=== PATIENT | female | born 1995 | race Two or more races ===

== ENCOUNTER 2018-03-25 15:43 | Inpatient (IN) | payer MEDICAID ==
[~2018-03-25] VITALS: Ht 162.6 cm; Wt 58.6 kg
[2018-03-25] MEDS ORDERED: PREN1TAB60 PO (15:57)
[2018-03-25 16:23] LABS: BASOPHILS # (AUTO) 0.02 x10^3/uL (0-0.1); BASOPHILS % (AUTO) 0 % (0-1); EOSINOPHILS # (AUTO) 0.11 x10^3/uL (0-0.4); EOSINOPHILS % (AUTO) 2 % (1-7); LYMPHOCYTES % (AUTO) 16 % (22-44); MD NO; MEAN CORPUSCULAR HEMOGLOBIN 32.7 pg (27.0-34.8); MEAN CORPUSCULAR VOLUME 93.3 fL (80-100); MEAN PLATELET VOLUME 9.2 fL (7.4-10.4); MONOCYTES % (AUTO) 5 % (2-9); NEUTROPHILS # (AUTO) 4.74 x10^3/uL (1.8-6.8); NEUTROPHILS % (AUTO) 77 % (42-75); PLATELET COUNT 224 x10^3/uL (130-400); RED CELL DISTRIBUTION WIDTH 13.4 % (9.6-15.2)
[2018-03-25 16:33] VITALS: BP 151/91
[2018-03-25 16:34] LABS: ALANINE AMINOTRANSFERASE 98 U/L (12-78); ALBUMIN 2.1 g/dL (3.4-5.0); ANION GAP 12 mmol/L (5-15); CALCIUM 8.8 mg/dL (8.5-10.1); CHLORIDE 107 mmol/L (98-107); CREATININE 0.66 mg/dL (0.55-1.02)
[2018-03-25 16:35] LABS: CREATININE,URINE RANDOM 90.2 mg/dL
[2018-03-25 16:37] LABS: ALKALINE PHOSPHATASE 462 U/L (45-117); BILIRUBIN,TOTAL 1.3 mg/dL (0.2-1.0); TOTAL PROTEIN 6.7 g/dL (6.4-8.2)
[2018-03-25 16:43] LABS: MICROSCOPIC INDICATED
[2018-03-25] MEDS ORDERED: BETAMETHASONE 6 MG/ML, 5ML IM ONE (17:20)
[2018-03-25] MEDS: BETAMETHASONE 6 MG/ML, 5ML IM SCH (17:23)
[2018-03-25 17:28] VITALS: BP 145/90
[2018-03-25] MEDS ORDERED: ACETAMINOPHEN 325 MG TABLET ONE (20:39)
[2018-03-25] MEDS: ACETAMINOPHEN 325 MG TABLET PO PRN (20:41)
[2018-03-26] MEDS ORDERED: OXYTOCIN 10 UNITS/ML, 1ML ONE (03:26)
[2018-03-26] MEDS ORDERED: LIDOCAINE/PF 1%, 30ML ONE (03:26)
[2018-03-26] MEDS ORDERED: OXYTOCIN 30U/ 0.9% NaCL 500ML 500 ML ONE (03:26)
[2018-03-26] MEDS ORDERED: MISOPROSTOL 200 MCG TABLET ONE (03:26)
[2018-03-26] MEDS ORDERED: NEWBORN KIT ONE (03:26)
[2018-03-26 05:00] LABS: BASOPHILS # (AUTO) 0.02 x10^3/uL (0-0.1); BASOPHILS % (AUTO) 0 % (0-1); EOSINOPHILS % (AUTO) 0 % (1-7); LYMPHOCYTES % (AUTO) 11 % (22-44); MD NO; MEAN CORPUSCULAR HGB CONC 35.1 g/dL (32.4-35.8); MEAN CORPUSCULAR VOLUME 94.2 fL (80-100); MEAN PLATELET VOLUME 9.3 fL (7.4-10.4); MONOCYTES # (AUTO) 0.17 x10^3/uL (0.2-0.8); MONOCYTES % (AUTO) 3 % (2-9); NEUTROPHILS # (AUTO) 6.11 x10^3/uL (1.8-6.8); NEUTROPHILS % (AUTO) 86 % (42-75); PLATELET COUNT 213 x10^3/uL (130-400); RED CELL DISTRIBUTION WIDTH 13.6 % (9.6-15.2)
[2018-03-26 05:12] LABS: ALBUMIN 2.1 g/dL (3.4-5.0); ANION GAP 11 mmol/L (5-15); CALCIUM 8.6 mg/dL (8.5-10.1); CHLORIDE 108 mmol/L (98-107)
[2018-03-26 05:16] LABS: ALANINE AMINOTRANSFERASE 94 U/L (12-78); ALKALINE PHOSPHATASE 443 U/L (45-117); BILIRUBIN,TOTAL 1.4 mg/dL (0.2-1.0); CREATININE 0.61 mg/dL (0.55-1.02); TOTAL PROTEIN 6.7 g/dL (6.4-8.2)
[2018-03-26] MEDS: BETAMETHASONE 6 MG/ML, 5ML IM SCH (17:09)
[2018-03-26 19:03] LABS: AMPHETAMINE SCREEN, URINE Negative (Negative); BARBITURATE SCREEN, URINE Negative (Negative); BENZODIAZEPINE SCREEN, URINE Negative (Negative); CANNABINOID SCREEN, URINE Negative (Negative); COCAINE SCREEN, URINE Negative (Negative); METHADONE SCREEN, URINE Negative (Negative); OPIATE SCREEN, URINE Negative (Negative)
[2018-03-26 20:00] VITALS: BP 146/89
[2018-03-26 23:00] VITALS: BP 126/62
[2018-03-27] MEDS ORDERED: PRENATAL VIT/IRON/FA 1 EACH TABLET ONE (08:16)
[2018-03-27] MEDS: PRENATAL VIT/IRON/FA 1 EACH TABLET PO SCH (08:19)
[2018-03-27 20:16] VITALS: BP 141/78
[2018-03-28 05:27] LABS: BASOPHILS # (AUTO) 0.01 x10^3/uL (0-0.1); BASOPHILS % (AUTO) 0 % (0-1); EOSINOPHILS # (AUTO) 0.03 x10^3/uL (0-0.4); EOSINOPHILS % (AUTO) 0 % (1-7); LYMPHOCYTES # (AUTO) 1.08 x10^3/uL (1-3.4); LYMPHOCYTES % (AUTO) 14 % (22-44); MD NO; MEAN CORPUSCULAR HEMOGLOBIN 33.1 pg (27.0-34.8); MEAN CORPUSCULAR HGB CONC 34.9 g/dL (32.4-35.8); MEAN CORPUSCULAR VOLUME 94.9 fL (80-100); MEAN PLATELET VOLUME 9.3 fL (7.4-10.4); MONOCYTES # (AUTO) 0.53 x10^3/uL (0.2-0.8); MONOCYTES % (AUTO) 7 % (2-9); NEUTROPHILS # (AUTO) 6.24 x10^3/uL (1.8-6.8); NEUTROPHILS % (AUTO) 79 % (42-75); PLATELET COUNT 199 x10^3/uL (130-400); RED CELL DISTRIBUTION WIDTH 13.4 % (9.6-15.2)
[2018-03-28 05:39] LABS: ALBUMIN 1.9 g/dL (3.4-5.0); ANION GAP 8 mmol/L (5-15); CALCIUM 8.2 mg/dL (8.5-10.1); CHLORIDE 109 mmol/L (98-107)
[2018-03-28 05:45] LABS: ALANINE AMINOTRANSFERASE 120 U/L (12-78); ALKALINE PHOSPHATASE 363 U/L (45-117); BILIRUBIN,TOTAL 0.7 mg/dL (0.2-1.0); CREATININE 0.52 mg/dL (0.55-1.02); TOTAL PROTEIN 6.2 g/dL (6.4-8.2)
[2018-03-28] MEDS ORDERED: PRENATAL VIT/IRON/FA 1 EACH TABLET ONE (08:11)
[2018-03-28] MEDS: PRENATAL VIT/IRON/FA 1 EACH TABLET PO SCH (08:12)
[2018-03-28 20:00] VITALS: BP 126/60
[2018-03-29 05:54] LABS: BASOPHILS # (AUTO) 0.03 x10^3/uL (0-0.1); BASOPHILS % (AUTO) 0 % (0-1); EOSINOPHILS # (AUTO) 0.18 x10^3/uL (0-0.4); EOSINOPHILS % (AUTO) 2 % (1-7); LYMPHOCYTES # (AUTO) 0.87 x10^3/uL (1-3.4); LYMPHOCYTES % (AUTO) 11 % (22-44); MD NO; MEAN CORPUSCULAR HEMOGLOBIN 32.9 pg (27.0-34.8); MEAN CORPUSCULAR HGB CONC 34.4 g/dL (32.4-35.8); MEAN CORPUSCULAR VOLUME 95.5 fL (80-100); MEAN PLATELET VOLUME 9.6 fL (7.4-10.4); MONOCYTES # (AUTO) 0.54 x10^3/uL (0.2-0.8); MONOCYTES % (AUTO) 7 % (2-9); NEUTROPHILS # (AUTO) 6.59 x10^3/uL (1.8-6.8); NEUTROPHILS % (AUTO) 80 % (42-75); PLATELET COUNT 207 x10^3/uL (130-400); RED CELL DISTRIBUTION WIDTH 13.4 % (9.6-15.2)
[2018-03-29 05:57] LABS: INTERNATIONAL NORMALIZED RATIO 0.89 (0.93-1.1); PROTHROMBIN TIME 9.3 Seconds (9.6-11.5)
[2018-03-29 06:08] LABS: CALCIUM 8.4 mg/dL (8.5-10.1); CHLORIDE 107 mmol/L (98-107)
[2018-03-29 06:21] LABS: ALANINE AMINOTRANSFERASE 104 U/L (12-78); ALKALINE PHOSPHATASE 358 U/L (45-117); ANION GAP 11 mmol/L (5-15); BILIRUBIN,TOTAL 0.7 mg/dL (0.2-1.0); CREATININE 0.56 mg/dL (0.55-1.02); TOTAL PROTEIN 6.2 g/dL (6.4-8.2)
[2018-03-29 08:05] VITALS: BP 125/73
[2018-03-29] MEDS ORDERED: DIPH,PERTUSS(ACELL),TET VAC/PF NC IM-VACC ONE ×3 (16:00→16:08)
[2018-03-29] MEDS ORDERED: PRENATAL VIT/IRON/FA 1 EACH TABLET ONE (16:37)
[2018-03-29] MEDS: PRENATAL VIT/IRON/FA 1 EACH TABLET PO SCH (16:47)
[2018-03-29 19:10] VITALS: BP 126/78
[2018-03-30 04:43] LABS: BASOPHILS # (AUTO) 0.03 x10^3/uL (0-0.1); BASOPHILS % (AUTO) 0 % (0-1); EOSINOPHILS % (AUTO) 2 % (1-7); LYMPHOCYTES # (AUTO) 1.12 x10^3/uL (1-3.4); LYMPHOCYTES % (AUTO) 13 % (22-44); MD NO; MEAN CORPUSCULAR HEMOGLOBIN 32.4 pg (27.0-34.8); MEAN CORPUSCULAR HGB CONC 34.1 g/dL (32.4-35.8); MEAN CORPUSCULAR VOLUME 94.9 fL (80-100); MEAN PLATELET VOLUME 9.2 fL (7.4-10.4); MONOCYTES # (AUTO) 0.51 x10^3/uL (0.2-0.8); MONOCYTES % (AUTO) 6 % (2-9); NEUTROPHILS # (AUTO) 6.66 x10^3/uL (1.8-6.8); NEUTROPHILS % (AUTO) 78 % (42-75); PLATELET COUNT 211 x10^3/uL (130-400); RED CELL DISTRIBUTION WIDTH 13.5 % (9.6-15.2)
[2018-03-30 04:53] LABS: ALANINE AMINOTRANSFERASE 91 U/L (12-78); ANION GAP 9 mmol/L (5-15); CHLORIDE 106 mmol/L (98-107); CREATININE 0.44 mg/dL (0.55-1.02)
[2018-03-30 04:55] LABS: ALKALINE PHOSPHATASE 380 U/L (45-117); BILIRUBIN,TOTAL 0.7 mg/dL (0.2-1.0); TOTAL PROTEIN 6.3 g/dL (6.4-8.2)
[2018-03-30 10:30] VITALS: BP 127/66
[2018-03-30] MEDS ORDERED: PRENATAL VIT/IRON/FA 1 EACH TABLET ONE (11:08)
[2018-03-30] MEDS: PRENATAL VIT/IRON/FA 1 EACH TABLET PO SCH (13:57)
[2018-03-31 05:46] LABS: BASOPHILS # (AUTO) 0.04 x10^3/uL (0-0.1); BASOPHILS % (AUTO) 0 % (0-1); EOSINOPHILS # (AUTO) 0.19 x10^3/uL (0-0.4); EOSINOPHILS % (AUTO) 2 % (1-7); LYMPHOCYTES # (AUTO) 1.26 x10^3/uL (1-3.4); LYMPHOCYTES % (AUTO) 15 % (22-44); MD NO; MEAN CORPUSCULAR HEMOGLOBIN 32.8 pg (27.0-34.8); MEAN CORPUSCULAR HGB CONC 34.7 g/dL (32.4-35.8); MEAN CORPUSCULAR VOLUME 94.6 fL (80-100); MEAN PLATELET VOLUME 9.3 fL (7.4-10.4); MONOCYTES # (AUTO) 0.44 x10^3/uL (0.2-0.8); MONOCYTES % (AUTO) 5 % (2-9); NEUTROPHILS # (AUTO) 6.24 x10^3/uL (1.8-6.8); NEUTROPHILS % (AUTO) 76 % (42-75); PLATELET COUNT 218 x10^3/uL (130-400); RED BLOOD COUNT 4.11 x10^6/uL (3.82-5.3); RED CELL DISTRIBUTION WIDTH 13.6 % (9.6-15.2)
[2018-03-31 06:00] LABS: CHLORIDE 106 mmol/L (98-107)
[2018-03-31 06:01] LABS: ANION GAP 10 mmol/L (5-15); CALCIUM 8.9 mg/dL (8.5-10.1)
[2018-03-31 06:06] LABS: ALANINE AMINOTRANSFERASE 80 U/L (12-78); ALKALINE PHOSPHATASE 383 U/L (45-117); BILIRUBIN,TOTAL 0.7 mg/dL (0.2-1.0); CREATININE 0.46 mg/dL (0.55-1.02); TOTAL PROTEIN 6.3 g/dL (6.4-8.2)
[2018-03-31 07:30] VITALS: BP 126/66
[2018-04-01 05:50] LABS: BASOPHILS # (AUTO) 0.03 x10^3/uL (0-0.1); BASOPHILS % (AUTO) 0 % (0-1); EOSINOPHILS # (AUTO) 0.23 x10^3/uL (0-0.4); EOSINOPHILS % (AUTO) 3 % (1-7); LYMPHOCYTES # (AUTO) 1.19 x10^3/uL (1-3.4); LYMPHOCYTES % (AUTO) 15 % (22-44); MD NO; MEAN CORPUSCULAR HEMOGLOBIN 32.5 pg (27.0-34.8); MEAN CORPUSCULAR HGB CONC 34.5 g/dL (32.4-35.8); MEAN CORPUSCULAR VOLUME 94.2 fL (80-100); MONOCYTES # (AUTO) 0.48 x10^3/uL (0.2-0.8); MONOCYTES % (AUTO) 6 % (2-9); NEUTROPHILS # (AUTO) 5.84 x10^3/uL (1.8-6.8); NEUTROPHILS % (AUTO) 75 % (42-75); PLATELET COUNT 221 x10^3/uL (130-400); RED CELL DISTRIBUTION WIDTH 13.5 % (9.6-15.2)
[2018-04-01 05:57] LABS: ALANINE AMINOTRANSFERASE 67 U/L (12-78); ALBUMIN 1.9 g/dL (3.4-5.0); ANION GAP 10 mmol/L (5-15); CALCIUM 8.2 mg/dL (8.5-10.1); CHLORIDE 107 mmol/L (98-107)
[2018-04-01 05:59] LABS: ALKALINE PHOSPHATASE 396 U/L (45-117); BILIRUBIN,TOTAL 0.8 mg/dL (0.2-1.0); TOTAL PROTEIN 6.1 g/dL (6.4-8.2)
[2018-04-01] MEDS ORDERED: PRENATAL VIT/IRON/FA 1 EACH TABLET ONE (08:00)
[2018-04-01] MEDS: PRENATAL VIT/IRON/FA 1 EACH TABLET PO SCH (08:03)
[2018-04-01 08:11] VITALS: BP 136/72
[2018-04-02 05:01] LABS: BASOPHILS # (AUTO) 0.02 x10^3/uL (0-0.1); BASOPHILS % (AUTO) 0 % (0-1); EOSINOPHILS # (AUTO) 0.16 x10^3/uL (0-0.4); EOSINOPHILS % (AUTO) 2 % (1-7); LYMPHOCYTES # (AUTO) 1.08 x10^3/uL (1-3.4); LYMPHOCYTES % (AUTO) 16 % (22-44); MD NO; MEAN CORPUSCULAR HEMOGLOBIN 32.9 pg (27.0-34.8); MEAN CORPUSCULAR HGB CONC 35.1 g/dL (32.4-35.8); MEAN CORPUSCULAR VOLUME 93.7 fL (80-100); MONOCYTES % (AUTO) 7 % (2-9); NEUTROPHILS # (AUTO) 5.15 x10^3/uL (1.8-6.8); NEUTROPHILS % (AUTO) 75 % (42-75); PLATELET COUNT 215 x10^3/uL (130-400); RED BLOOD COUNT 4.19 x10^6/uL (3.82-5.3); RED CELL DISTRIBUTION WIDTH 13.4 % (9.6-15.2)
[2018-04-02 05:05] LABS: ALANINE AMINOTRANSFERASE 61 U/L (12-78); ANION GAP 10 mmol/L (5-15); CALCIUM 8.3 mg/dL (8.5-10.1); CHLORIDE 107 mmol/L (98-107); CREATININE 0.61 mg/dL (0.55-1.02)
[2018-04-02 05:07] LABS: ALKALINE PHOSPHATASE 422 U/L (45-117); BILIRUBIN,TOTAL 0.8 mg/dL (0.2-1.0); TOTAL PROTEIN 6.3 g/dL (6.4-8.2)
[2018-04-02] MEDS ORDERED: PRENATAL VIT/IRON/FA 1 EACH TABLET ONE (08:57)
[2018-04-02] MEDS: PRENATAL VIT/IRON/FA 1 EACH TABLET PO SCH (09:10)
[2018-04-02 09:15] VITALS: BP 120/76
[2018-04-02] MEDS ORDERED: CALCIUM CARBONATE 500 MG TAB.CHEW PO PRN (23:30)
[2018-04-02] MEDS ORDERED: CALCIUM CARBONATE 500 MG TAB.CHEW ONE (23:31)
[2018-04-03] MEDS ORDERED: PRENATAL VIT/IRON/FA 1 EACH TABLET ONE (11:52)
[2018-04-03] MEDS: PRENATAL VIT/IRON/FA 1 EACH TABLET PO SCH (11:53)
[2018-04-04 06:50] LABS: BASOPHILS # (AUTO) 0.03 x10^3/uL (0-0.1); BASOPHILS % (AUTO) 1 % (0-1); EOSINOPHILS # (AUTO) 0.28 x10^3/uL (0-0.4); EOSINOPHILS % (AUTO) 5 % (1-7); LYMPHOCYTES # (AUTO) 1.05 x10^3/uL (1-3.4); LYMPHOCYTES % (AUTO) 18 % (22-44); MD NO; MEAN CORPUSCULAR HEMOGLOBIN 32.6 pg (27.0-34.8); MEAN CORPUSCULAR HGB CONC 34.6 g/dL (32.4-35.8); MEAN CORPUSCULAR VOLUME 94.2 fL (80-100); MONOCYTES # (AUTO) 0.39 x10^3/uL (0.2-0.8); MONOCYTES % (AUTO) 7 % (2-9); NEUTROPHILS % (AUTO) 71 % (42-75); PLATELET COUNT 203 x10^3/uL (130-400)
[2018-04-04 06:54] LABS: ALANINE AMINOTRANSFERASE 45 U/L (12-78); ANION GAP 9 mmol/L (5-15); CALCIUM 8.5 mg/dL (8.5-10.1); CHLORIDE 108 mmol/L (98-107); CREATININE 0.55 mg/dL (0.55-1.02)
[2018-04-04 06:56] LABS: ALKALINE PHOSPHATASE 421 U/L (45-117); BILIRUBIN,TOTAL 0.8 mg/dL (0.2-1.0); TOTAL PROTEIN 6.3 g/dL (6.4-8.2)
[2018-04-04 08:40] VITALS: BP 139/68
[2018-04-05] MEDS: PRENATAL VIT/IRON/FA 1 EACH TABLET PO SCH ×2 (09:00→20:22)
[2018-04-05] MEDS ORDERED: PRENATAL VIT/IRON/FA 1 EACH TABLET ONE (20:19)
[2018-04-06] MEDS ORDERED: ACETAMINOPHEN 325 MG TABLET ONE (03:34)
[2018-04-06] MEDS: ACETAMINOPHEN 325 MG TABLET PO PRN (03:35)
[2018-04-06 10:50] VITALS: BP 130/60
[2018-04-06] MEDS ORDERED: PRENATAL VIT/IRON/FA 1 EACH TABLET ONE ×2 (11:02→20:22)
[2018-04-06] MEDS: PRENATAL VIT/IRON/FA 1 EACH TABLET PO SCH ×2 (11:07→20:24)
[2018-04-06 19:23] VITALS: BP 142/73
[2018-04-07] MEDS ORDERED: PRENATAL VIT/IRON/FA 1 EACH TABLET ONE (20:01)
[2018-04-07] MEDS: PRENATAL VIT/IRON/FA 1 EACH TABLET PO SCH (20:05)
[2018-04-08 05:48] LABS: CHLORIDE 107 mmol/L (98-107)
[2018-04-08 05:56] LABS: BASOPHILS # (AUTO) 0.03 x10^3/uL (0-0.1); BASOPHILS % (AUTO) 0 % (0-1); EOSINOPHILS # (AUTO) 0.16 x10^3/uL (0-0.4); EOSINOPHILS % (AUTO) 2 % (1-7); LYMPHOCYTES # (AUTO) 1.23 x10^3/uL (1-3.4); LYMPHOCYTES % (AUTO) 13 % (22-44); MD NO; MEAN CORPUSCULAR HEMOGLOBIN 32.8 pg (27.0-34.8); MEAN CORPUSCULAR VOLUME 93.9 fL (80-100); MEAN PLATELET VOLUME 9.2 fL (7.4-10.4); MONOCYTES # (AUTO) 0.65 x10^3/uL (0.2-0.8); MONOCYTES % (AUTO) 7 % (2-9); NEUTROPHILS # (AUTO) 7.26 x10^3/uL (1.8-6.8); NEUTROPHILS % (AUTO) 78 % (42-75); PLATELET COUNT 203 x10^3/uL (130-400); RED BLOOD COUNT 4.01 x10^6/uL (3.82-5.3)
[2018-04-08 05:59] LABS: ALANINE AMINOTRANSFERASE 30 U/L (12-78); ALBUMIN 1.9 g/dL (3.4-5.0); ALKALINE PHOSPHATASE 462 U/L (45-117); ANION GAP 9 mmol/L (5-15); BILIRUBIN,TOTAL 0.9 mg/dL (0.2-1.0); CALCIUM 8.5 mg/dL (8.5-10.1); CREATININE 0.59 mg/dL (0.55-1.02); TOTAL PROTEIN 6.2 g/dL (6.4-8.2)
[2018-04-08 08:05] VITALS: BP 123/63
== END 2018-04-08 12:56 | disposition home or self-care (01) | DRG 833 ==
LOC: LDOP 15:43 → UNDOADMOB 17:20 → OBSVTOIN 17:20 → LDIP 17:20 → INTOOBSV 17:20 → LDIP 03-26 21:35 → OBSVTOIN 03-26 21:35
PROVIDERS: ADMIT Obstetrics & Gynecology; ATTEND Obstetrics & Gynecology
DX: O13.3 Gestational [pregnancy-induced] hypertension without significant proteinuria, third trimester (principal); O30.043 Twin pregnancy, dichorionic/diamniotic, third trimester; Z3A.33 33 weeks gestation of pregnancy; G40.909 Epilepsy, unspecified, not intractable, without status epilepticus; O99.353 Diseases of the nervous system complicating pregnancy, third trimester; O36.5932 Maternal care for other known or suspected poor fetal growth, third trimester, fetus 2; R74.8 Abnormal levels of other serum enzymes; O26.893 Other specified pregnancy related conditions, third trimester; Z23 Encounter for immunization
CPT/HCPCS: 36415; 80053; 80307; 81001; 81050; 82570; 82950; 83615; 84156; 84550; 85025; 85610; 85730; 86592; 86762; 86850; 86900; 87340; 87806; 90656; 90715; G0378; J0702; G0475

== ENCOUNTER 2018-04-20 23:57 | Outpatient (CLI) | payer MEDICAID ==
[~2018-04-20] VITALS: Ht 162.6 cm; Wt 60.0 kg
[~2018-04-20 23:57] MED LIST: PREN1TAB60 PO
[2018-04-21 00:52] LABS: BASOPHILS # (AUTO) 0.02 x10^3/uL (0-0.1); BASOPHILS % (AUTO) 0 % (0-1); EOSINOPHILS # (AUTO) 0.05 x10^3/uL (0-0.4); EOSINOPHILS % (AUTO) 1 % (1-7); LYMPHOCYTES # (AUTO) 1.23 x10^3/uL (1-3.4); LYMPHOCYTES % (AUTO) 20 % (22-44); MD NO; MEAN CORPUSCULAR HGB CONC 34.5 g/dL (32.4-35.8); MEAN CORPUSCULAR VOLUME 92.7 fL (80-100); MEAN PLATELET VOLUME 9.3 fL (7.4-10.4); MONOCYTES # (AUTO) 0.33 x10^3/uL (0.2-0.8); MONOCYTES % (AUTO) 5 % (2-9); NEUTROPHILS # (AUTO) 4.52 x10^3/uL (1.8-6.8); NEUTROPHILS % (AUTO) 74 % (42-75); PLATELET COUNT 352 x10^3/uL (130-400); RED BLOOD COUNT 4.24 x10^6/uL (3.82-5.3); RED CELL DISTRIBUTION WIDTH 12.9 % (9.6-15.2)
[2018-04-21 00:59] LABS: ALANINE AMINOTRANSFERASE 41 U/L (12-78); ALBUMIN 1.5 g/dL (3.4-5.0); ANION GAP 10 mmol/L (5-15); CALCIUM 7.9 mg/dL (8.5-10.1); CHLORIDE 108 mmol/L (98-107); CREATININE 0.84 mg/dL (0.55-1.02)
[2018-04-21 01:01] LABS: ALKALINE PHOSPHATASE 536 U/L (45-117); TOTAL PROTEIN 6.7 g/dL (6.4-8.2)
[2018-04-21 01:09] LABS: MICROSCOPIC INDICATED
[2018-04-21 01:24] LABS: CREATININE,URINE RANDOM 94.2 mg/dL
[2018-04-21] MEDS ORDERED: NITROFURANTOIN (MACROBID) 100 MG CAPSULE ONE (01:34)
[2018-04-21] MEDS ORDERED: NITROFURANTOIN (MACROBID) 100 MG CAPSULE PO ONE (02:00)
== END 2018-04-21 01:42 | disposition home or self-care (01) ==
LOC: LDOP 23:57
PROVIDERS: ATTEND Obstetrics & Gynecology
DX: O26.893 Other specified pregnancy related conditions, third trimester (principal); Z3A.35 35 weeks gestation of pregnancy; R10.9 Unspecified abdominal pain
CPT/HCPCS: 36415; 59025; 80053; 81001; 82570; 84156; 84550; 85025; 87086; 99211; G0463

== ENCOUNTER 2018-04-30 11:35 | Inpatient (IN) | payer MEDICAID ==
[2018-04-30 12:42] LABS: BASOPHILS # (AUTO) 0.02 x10^3/uL (0-0.1); BASOPHILS % (AUTO) 0 % (0-1); EOSINOPHILS # (AUTO) 0.09 x10^3/uL (0-0.4); EOSINOPHILS % (AUTO) 1 % (1-7); LYMPHOCYTES # (AUTO) 1.29 x10^3/uL (1-3.4); LYMPHOCYTES % (AUTO) 20 % (22-44); MD NO; MEAN CORPUSCULAR HEMOGLOBIN 32.3 pg (27.0-34.8); MEAN CORPUSCULAR HGB CONC 34.4 g/dL (32.4-35.8); MEAN CORPUSCULAR VOLUME 93.9 fL (80-100); MEAN PLATELET VOLUME 10.6 fL (7.4-10.4); MONOCYTES # (AUTO) 0.27 x10^3/uL (0.2-0.8); MONOCYTES % (AUTO) 4 % (2-9); NEUTROPHILS # (AUTO) 4.75 x10^3/uL (1.8-6.8); NEUTROPHILS % (AUTO) 74 % (42-75); PLATELET COUNT 209 x10^3/uL (130-400); RED BLOOD COUNT 4.59 x10^6/uL (3.82-5.3); RED CELL DISTRIBUTION WIDTH 13.9 % (9.6-15.2)
[2018-04-30 12:52] LABS: CHLORIDE 107 mmol/L (98-107)
[2018-04-30 13:00] LABS: ALANINE AMINOTRANSFERASE 44 U/L (12-78); ALBUMIN 1.8 g/dL (3.4-5.0); ALKALINE PHOSPHATASE 681 U/L (45-117); ANION GAP 8 mmol/L (5-15); BILIRUBIN, DIRECT 1.3 mg/dL (0.1-0.2); BILIRUBIN,TOTAL 1.6 mg/dL (0.2-1.0); CALCIUM 8.6 mg/dL (8.5-10.1); CREATININE 0.87 mg/dL (0.55-1.02); TOTAL PROTEIN 6.9 g/dL (6.4-8.2)
[2018-04-30 13:33] LABS: CREATININE,URINE RANDOM 59.3 mg/dL
[2018-04-30 13:56] LABS: MICROSCOPIC INDICATED
[2018-04-30 15:52] LABS: AMPHETAMINE SCREEN, URINE Negative (Negative); BARBITURATE SCREEN, URINE Negative (Negative); BENZODIAZEPINE SCREEN, URINE Negative (Negative); CANNABINOID SCREEN, URINE Negative (Negative); COCAINE SCREEN, URINE Negative (Negative); METHADONE SCREEN, URINE Negative (Negative); OPIATE SCREEN, URINE Negative (Negative)
== END 2018-04-30 14:45 | disposition home or self-care (01) | DRG 833 ==
LOC: LDOP 11:35 → LDIP 12:14
PROVIDERS: ADMIT Obstetrics & Gynecology; ATTEND Obstetrics & Gynecology
DX: O41.03X0 Oligohydramnios, third trimester, not applicable or unspecified (principal); O32.1XX0 Maternal care for breech presentation, not applicable or unspecified; O36.5930 Maternal care for other known or suspected poor fetal growth, third trimester, not applicable or unspecified; O30.043 Twin pregnancy, dichorionic/diamniotic, third trimester; Z3A.37 37 weeks gestation of pregnancy
CPT/HCPCS: 36415; 80053; 80307; 81001; 82248; 82570; 84156; 84550; 85025; 86850; 86900; 87081; 87086; G0378

== ENCOUNTER 2018-05-03 11:54 | Inpatient (IN) | payer MEDICAID ==
[~2018-05-03] VITALS: Ht 162.6 cm; Wt 58.0 kg
[2018-05-03] MEDS ORDERED: OXYTOCIN 30U/ 0.9% NaCL 500ML 500 ML IV SCH (12:58)
[2018-05-03] MEDS ORDERED: LACTATED RINGERS 1,000 ML IV SCH ×2 (12:58→13:00)
[2018-05-03] MEDS ORDERED: SODIUM CITRATE/CITRIC ACID 30 ML UDC PO ONE (13:00)
[2018-05-03] MEDS ORDERED: LACTATED RINGERS 1,000 ML IVBOLUS ONE (13:00)
[2018-05-03] MEDS ORDERED: METOCLOPRAMIDE 5 MG/ML, 2ML IV ONE (13:00)
[2018-05-03 13:23] LABS: BASOPHILS # (AUTO) 0.03 x10^3/uL (0-0.1); BASOPHILS % (AUTO) 1 % (0-1); EOSINOPHILS # (AUTO) 0.04 x10^3/uL (0-0.4); EOSINOPHILS % (AUTO) 1 % (1-7); LYMPHOCYTES # (AUTO) 1.16 x10^3/uL (1-3.4); LYMPHOCYTES % (AUTO) 19 % (22-44); MD NO; MEAN CORPUSCULAR HEMOGLOBIN 32.1 pg (27.0-34.8); MEAN CORPUSCULAR HGB CONC 34.5 g/dL (32.4-35.8); MEAN CORPUSCULAR VOLUME 92.9 fL (80-100); MONOCYTES # (AUTO) 0.21 x10^3/uL (0.2-0.8); MONOCYTES % (AUTO) 3 % (2-9); NEUTROPHILS # (AUTO) 4.78 x10^3/uL (1.8-6.8); NEUTROPHILS % (AUTO) 77 % (42-75); PLATELET COUNT 207 x10^3/uL (130-400); RED BLOOD COUNT 4.73 x10^6/uL (3.82-5.3); RED CELL DISTRIBUTION WIDTH 14.3 % (9.6-15.2)
[2018-05-03] MEDS ORDERED: PLEASE ENTER HEIGHT AND WEIGHT MC SCH (13:30)
[2018-05-03 13:39] VITALS: BP 135/96
[2018-05-03] MEDS ORDERED: METOCLOPRAMIDE 5 MG/ML, 2ML ONE (14:25)
[2018-05-03] MEDS ORDERED: SODIUM CITRATE/CITRIC ACID 30 ML UDC ONE (14:25)
[2018-05-03] MEDS ORDERED: NEWBORN KIT ONE ×2 (14:26→14:29)
[2018-05-03] MEDS ORDERED: MEPERIDINE/PF 25MG/0.5ML IVPush PRN (15:30)
[2018-05-03] MEDS ORDERED: HYDROmorphone 2 MG/ML, 1ML IVPush PRN (15:30)
[2018-05-03] MEDS ORDERED: LABETALOL 5MG/ML, 20ML IV PRN (15:30)
[2018-05-03] MEDS ORDERED: hydrALAzine 20 MG/ML, 1ML IV PRN (15:30)
[2018-05-03] MEDS ORDERED: PROMETHAZINE 25 MG/ML, 1ML IV PRN (15:30)
[2018-05-03] MEDS ORDERED: EPHEDRINE 50 MG/ML, 1ML IVPush PRN (15:30)
[2018-05-03] MEDS ORDERED: ONDANSETRON 2MG/ML, 2ML IVPush PRN (15:30)
[2018-05-03] MEDS ORDERED: MIDAZOLAM 1 MG/ML, 2ML IV PRN (15:30)
[2018-05-03] MEDS ORDERED: OXYcodone 5 MG/5 ML ORAL.SOL UDC PO PRN ×2 (15:30→20:30)
[2018-05-03] MEDS ORDERED: FENTANYL PF 100 MCG/2ML IV PRN (15:30)
[2018-05-03] MEDS ORDERED: HYDROcodone/APAP 7.5-325MG/15ML UDC PO PRN (15:30)
[2018-05-03] MEDS ORDERED: ALBUTEROL SULFATE 2.5 MG/3 ML NPPB PRN (15:30)
[2018-05-03] MEDS ORDERED: KETOROLAC 30 MG/1 ML ONE (15:47)
[2018-05-03] MEDS ORDERED: PHENYLEPHRINE 10 MG/ML ONE (15:47)
[2018-05-03] MEDS ORDERED: CEFAZOLIN 1,000 MG ONE (15:47)
[2018-05-03] MEDS ORDERED: FENTANYL PF 100 MCG/2ML ONE (15:47)
[2018-05-03] MEDS ORDERED: ONDANSETRON 2MG/ML, 2ML ONE (15:47)
[2018-05-03] MEDS ORDERED: OXYTOCIN 10 UNITS/ML, 1ML ONE (15:47)
[2018-05-03] MEDS ORDERED: DEXAMETHASONE 4 MG/ML, 1ML ONE (15:47)
[2018-05-03] MEDS ORDERED: EPHEDRINE 50 MG/ML, 1ML ONE (15:47)
[2018-05-03] MEDS ORDERED: OXYTOCIN 30U/ 0.9% NaCL 500ML 500 ML ONE (16:20)
[2018-05-03] MEDS ORDERED: HYDROmorphone 2 MG/ML, 1ML ONE (17:05)
[2018-05-03] MEDS ORDERED: MISOPROSTOL 200 MCG TABLET ONE (17:33)
[2018-05-03] MEDS ORDERED: MISOPROSTOL 200 MCG TABLET PR ONE (18:30)
[2018-05-03] MEDS ORDERED: OXYcodone 5 MG/5 ML ORAL.SOL UDC ONE (20:15)
[2018-05-03 20:30] VITALS: BP 130/69
[2018-05-03] MEDS: OXYTOCIN 30U/ 0.9% NaCL 500ML 500 ML IV SCH (20:39)
[2018-05-03] MEDS: LACTATED RINGERS 1,000 ML IV SCH ×2 (20:39)
[2018-05-03] MEDS ORDERED: CALCIUM CARBONATE 500 MG TAB.CHEW PO PRN (21:00)
[2018-05-03] MEDS ORDERED: ACETAMINOPHEN 325 MG TABLET PO PRN ×2 (21:00)
[2018-05-03] MEDS ORDERED: ONDANSETRON 2MG/ML, 2ML IV PRN (21:00)
[2018-05-03] MEDS: KETOROLAC 30 MG/1 ML IV SCH (23:38)
[2018-05-04] VITALS (7 sets, daily range): BP systolic 119–151; BP diastolic 72–92
[2018-05-04] MEDS: OXYcodone/APAP 5/325MG TABLET PO PRN ×4 (02:13→22:55)
[2018-05-04] MEDS: LACTATED RINGERS 1,000 ML IV SCH ×5 (04:39→20:39)
[2018-05-04] MEDS: KETOROLAC 30 MG/1 ML IV SCH ×4 (05:35→22:58)
[2018-05-04] MEDS: OXYTOCIN 30U/ 0.9% NaCL 500ML 500 ML IV SCH ×2 (06:39→16:39)
[2018-05-04] MEDS: DOCUSATE 100 MG CAPSULE PO PRN ×2 (10:01→22:55)
[2018-05-04] MEDS: PRENATAL VIT/IRON/FA 1 EACH TABLET PO SCH (10:01)
[2018-05-05] MEDS: OXYTOCIN 30U/ 0.9% NaCL 500ML 500 ML IV SCH ×3 (02:39→18:38)
[2018-05-05] MEDS: LACTATED RINGERS 1,000 ML IV SCH ×6 (02:39→18:38)
[2018-05-05] MEDS: OXYcodone/APAP 5/325MG TABLET PO PRN ×2 (05:03→22:41)
[2018-05-05] MEDS: KETOROLAC 30 MG/1 ML IV SCH ×3 (05:49→17:58)
[2018-05-05 07:25] VITALS: BP 128/79
[2018-05-05 09:45] LABS: BASOPHILS # (AUTO) 0.03 x10^3/uL (0-0.1); BASOPHILS % (AUTO) 0 % (0-1); EOSINOPHILS # (AUTO) 0.04 x10^3/uL (0-0.4); EOSINOPHILS % (AUTO) 1 % (1-7); LYMPHOCYTES # (AUTO) 1.72 x10^3/uL (1-3.4); LYMPHOCYTES % (AUTO) 18 % (22-44); MD NO; MEAN CORPUSCULAR HEMOGLOBIN 31.5 pg (27.0-34.8); MEAN CORPUSCULAR HGB CONC 33.4 g/dL (32.4-35.8); MEAN CORPUSCULAR VOLUME 94.4 fL (80-100); MEAN PLATELET VOLUME 9.9 fL (7.4-10.4); MONOCYTES # (AUTO) 0.58 x10^3/uL (0.2-0.8); MONOCYTES % (AUTO) 6 % (2-9); NEUTROPHILS # (AUTO) 7.41 x10^3/uL (1.8-6.8); NEUTROPHILS % (AUTO) 76 % (42-75); PLATELET COUNT 194 x10^3/uL (130-400); RED BLOOD COUNT 2.65 x10^6/uL (3.82-5.3)
[2018-05-05] MEDS: DOCUSATE 100 MG CAPSULE PO PRN (11:29)
[2018-05-05] MEDS: PRENATAL VIT/IRON/FA 1 EACH TABLET PO SCH (11:29)
[2018-05-05 21:00] VITALS: BP 131/78
[2018-05-06] MEDS: OXYcodone/APAP 5/325MG TABLET PO PRN ×4 (03:42→20:32)
[2018-05-06] MEDS: LACTATED RINGERS 1,000 ML IV SCH (04:39)
[2018-05-06] MEDS: IBUPROFEN 600 MG TABLET PO PRN ×2 (06:47→15:54)
[2018-05-06 08:55] VITALS: BP 126/81
[2018-05-06] MEDS: DOCUSATE 100 MG CAPSULE PO PRN ×2 (09:06→20:32)
[2018-05-06] MEDS: PRENATAL VIT/IRON/FA 1 EACH TABLET PO SCH (09:06)
[2018-05-06 19:15] VITALS: BP 132/86
[2018-05-07] MEDS: OXYcodone/APAP 5/325MG TABLET PO PRN ×2 (00:16→15:47)
[2018-05-07] MEDS: IBUPROFEN 600 MG TABLET PO PRN ×3 (00:16→15:47)
[2018-05-07 08:30] VITALS: BP 130/82
[2018-05-07] MEDS: DOCUSATE 100 MG CAPSULE PO PRN (08:36)
[2018-05-07] MEDS: PRENATAL VIT/IRON/FA 1 EACH TABLET PO SCH (08:36)
[2018-05-07] MEDS ORDERED: BISACODYL 10 MG SUPP PR PRN (11:00)
[2018-05-07] MEDS ORDERED: IBUP200T49 PO (16:58)
== END 2018-05-07 18:20 | disposition home or self-care (01) | DRG 787 ==
LOC: LDOP 11:54 → LDIP 12:22 → 2NW 20:00
PROVIDERS: ADMIT Obstetrics & Gynecology; ATTEND Obstetrics & Gynecology
PROC: 10D00Z1 Extraction of Products of Conception, Low, Open Approach (ICD-10-PCS; principal; 2018-05-03)
DX: O32.1XX2 Maternal care for breech presentation, fetus 2 (principal); O41.03X0 Oligohydramnios, third trimester, not applicable or unspecified; O10.92 Unspecified pre-existing hypertension complicating childbirth; O30.043 Twin pregnancy, dichorionic/diamniotic, third trimester; Z37.2 Twins, both liveborn; O36.5930 Maternal care for other known or suspected poor fetal growth, third trimester, not applicable or unspecified; Z3A.37 37 weeks gestation of pregnancy
CPT/HCPCS: 36415; 82803; 85025; 86850; 86900; 88307; G0378; J0690; J1100; J1170; J1885; J2405; J3010; J2370; J2590; J2765; J7120